=== PATIENT | female | born 1955 | race Caucasian/White ===

== ENCOUNTER → 2020-03-25 11:01 | Outpatient (CLI) | payer OTHER, MEDICARE, SELFPAY ==
--- NOTE | ~2020-03-25 | XR_ITS ---
EXAMINATION:XR cervical spine 4-5V, XR thoracic spine 3V DATE: 03/25/2020 11:55 INDICATION: Neck pain and upper back pain TECHNIQUE: 1. AP, lateral, lateral swimmers and odontoid views of the cervical spine are provided. 2. AP, lateral and lateral swimmer's views of the thoracic spine were obtained. COMPARISON: None FINDINGS: Cervical spine: Reversal of the normal cervical lordosis. 30 degree lower cervical dextroscoliosis measured between C 4 and T1. Odontoid is intact. Normal atlantoaxial interval. Vertebral body heights are normal. Mild disc height loss at C2-C3 and C4-C5. Moderate disc height loss at C5-C6 and C6-C7. Small posterior en dplate osteophytes at C5-C6 and C6-7 result in mild central canal stenosis. 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 Mild uncovertebral and facet ost eoarthritis in the remainder of the cervical spine. Small amount of atherosclerotic calcific a cyst a t the left carotid bulb. Prevertebral soft tissues are normal. Thoracic spine: 50 degree levoscoliosis measured between T2 and T7, 35 degree dextroscoliosis between T7 and T12 and partially visualized lumbar levoscoliosis. Sagittal alignment is normal. Vertebral body heights are n ormal. Moderate disc height loss at T5-T6, along the right side of T3-T4 and T4-T5, at the right side of L1-L2 and L2-L3. Mild disc height loss at the remaining thoracic levels. Visualized portion of th e lungs are clear with no evident pleural effusion or pneumothorax. Cardiomediastinal silhouette is n ormal. IMPRESSION: 1. Multi component scoliosis of the cervical, thoracic and lumbar spine with moderate spondylosis. Reviewed, dictated and finalized at location B. IMPRESSION: 1. Multi component scoliosis of the cervical, thoracic and lumbar spine with mo derate spondylosis.
== END ==
PROVIDERS: PCP Family Medicine; Visit Provider Family Medicine
DX: M62.838 Other muscle spasm (principal); M47.892 Other spondylosis, cervical region; M47.894 Other spondylosis, thoracic region; M47.896 Other spondylosis, lumbar region; M41.9 Scoliosis, unspecified
CPT/HCPCS: 72050; 72072

== ENCOUNTER → 2020-06-01 11:47 | Outpatient (CLI) | payer MEDICARE, SELFPAY ==
--- NOTE | ~2020-06-01 | XR_ITS ---
XR hip RT 2V w AP pelvis DATE: 06/01/2020 12:15 INDICATION: Right hip pain, low back pain. TECHNIQUE: AP pelvis. AP, lateral, crosstable lateral views of right hip COMPARISON: None FINDINGS: There is rotatory levoscoliosis and degenerative disc disease of the lumbar spine. The pubic symphysis and sacroiliac joints are intact. No pelvic fracture or bone destruction. Hip joint spaces are symmetric and relatively preserved. No fracture, dislocation, avascular necrosis or bone destruction of the right hip is evident. There is a prominent amount of fecal material in the colon but no apparent bowel obstruction. IMPRESSION: Rotatory levoscoliosis and degenerative disc disease of the lumbar spine Negative right hip and pelvis Reviewed, dictated and finalized at location A. IMPROVEMENT CONTRACTOR
--- NOTE | ~2020-06-01 | XR_ITS ---
XR lumbar spine 2-3V DATE: 06/01/2020 12:15 INDICATION: Low back pain, hip pain TECHNIQUE: AP, lateral, coned lateral lumbosacral views COMPARISON: None FINDINGS: There is prominent rotatory levoscoliosis of the lower thoracic and lumbar spine. There is multilevel degenerative disc disease, most pronounced on the right at L1-2, L2-3, on the lef t at L4-5. There is a transitional first sacral vertebra, which may be a source of chronic low back pain. There is degenerative change at the apophyseal joints. The sacroiliac joints appear normal. There is a prominent of fecal material in the colon but no apparent bowel obstruction IMPRESSION: Prominent rotatory levoscoliosis and multilevel degenerative disc disease Transitional first sacral vertebra Reviewed, dictated and finalized at location A. NG ENGINEERING TECHNOLOGIST IMPRESSION: Prominent rotatory levoscoliosis and multilevel degenerative disc d isease Transitional first sacral vertebra
== END ==
PROVIDERS: PCP Family Medicine; Visit Provider Family Medicine
DX: M25.551 Pain in right hip (principal); M54.41 Lumbago with sciatica, right side
CPT/HCPCS: 72100; 73502

== ENCOUNTER 2024-09-19 13:12 | Outpatient (CLI) | payer MEDICARE, SELFPAY | END 2024-09-19 13:13 | disposition home or self-care (01) | LOC: ANHIMG 13:15 | PROVIDERS: PCP Family Medicine; Visit Provider Nurse Practitioner Family | DX: Z12.31 Encounter for screening mammogram for malignant neoplasm of breast (principal); R92.8 Other abnormal and inconclusive findings on diagnostic imaging of breast | CPT/HCPCS: 77063; 77067 ==